=== PATIENT | male | born 1965 | race Two or more races ===

== ENCOUNTER 2025-07-15 23:23 | Emergency (ER) | payer OTHER ==
[~2025-07-15] VITALS: Ht 182.9 cm; Wt 95.0 kg
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
[2025-07-16 03:32] VITALS: BP 164/80; PULSE 59; RESP 18; TEMP 98.7; O2SAT 96
[2025-07-16] MEDS: HYDROcodone-ACET 5/325MG TAB ONE (03:32)
[2025-07-16] MEDS: HYDROcodone-ACET 10/325MG TAB PO ONE (03:33)
== END 2025-07-16 03:45 | disposition home or self-care (01) ==
LOC: ER 23:23
DX: S13.4XXA Sprain of ligaments of cervical spine, initial encounter (principal); S93.401A Sprain of unspecified ligament of right ankle, initial encounter; S39.012A Strain of muscle, fascia and tendon of lower back, initial encounter; S09.8XXA Other specified injuries of head, initial encounter; Z79.01 Long term (current) use of anticoagulants; V89.2XXA Person injured in unspecified motor-vehicle accident, traffic, initial encounter; Y93.89 Activity, other specified; Y92.488 Other paved roadways as the place of occurrence of the external cause; Y99.8 Other external cause status
CPT/HCPCS: 29515; 70450; 72100; 72125; 73590; 73610